=== PATIENT | female | born 1970 | race Caucasian/White ===

== ENCOUNTER 2018-01-30 11:01 | Emergency (ER) | payer MEDICAID ==
[2018-01-30 11:22] VITALS: BP 178/116
[2018-01-30] MEDS ORDERED: Magnesium Citrate Solution 296 ML Bottle PO ONE (11:48)
[2018-01-30] MEDS ORDERED: Bisacodyl 10 MG Supp RECTAL ONE (11:49)
--- NOTE | 2018-01-30 11:54 | EDM.PDOC ---
ED HPI GENERAL MEDICAL PROBLEM - General Chief Complaint: Abdominal Pain Stated Complaint: ABDOMEN PAIN Time Seen by Provider: 01/30/18 11:35 Source of Information: Reports: Patient, Old Records, RN History Limitations: Reports: No Limitations - History of Present Illness INITIAL COMMENTS - FREE TEXT/NARRATIVE: 47 yo female presents with LLQ abdominal pain that waxes and wanes. Last BM was hard. No vomiting. No abdominal distention or fever. No black or bloody stools. No dysuria. Is s/p KELTON with bilateral salpingo-oophorectomy. Onset: Gradual Onset Date: 01/29/18 Duration: Day(s):, Getting Worse, Waxing/Waning Location: Reports: Abdomen (LLQ) Quality: Reports: Sharp Severity: Moderate Improves with: Reports: None Worsens with: Reports: Other (? 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: Other (see below) (none) - Related Data Allergies Allergy/AdvReac Type Severity Reaction Status Date / Time No Known Allergies Allergy Verified 01/30/18 11:24 Home Meds: Home Meds Aspirin/Calcium Carbonate/Mag [Aspirin Buffered 325 mg Tab] 325 mg PO ASDIRECTED 12/09/15 [History] Losartan [Cozaar] 100 mg PO DAILY 12/09/15 [History] Pravastatin [Pravachol] 40 mg PO DAILY 12/09/15 [History] Spironolactone 25 mg PO DAILY 12/09/15 [History] sitaGLIPtin Phosphate [Januvia] 100 mg PO DAILY 12/09/15 [History] Insulin Glargine,Hum.Rec.Anlog [Basaglar Kwikpen U-100] 13 units SQ DAILY [History] Liraglutide [Victoza] 1 ml SQ ASDIRECTED 01/30/18 [History] Past Medical History Cardiovascular History: Reports: CAD, High Cholesterol, Hypertension, [place] [employer] History: Reports: Fibroids Endocrine/Metabolic History: Reports: Diabetes, Type II, IDDM Hematologic History: Reports: Bleeding Disorder - Past Surgical History GI Surgical History: Reports: Appendectomy Female Surgical History: Reports: Section, Hysterectomy, Salpingo- Oophorectomy, Tubal Ligation Social & Family History - Tobacco Use Smoking Status *Q: Current Every Day Smoker Years of Tobacco use: 20 Packs/Tins Daily: 0.5 - Caffeine Use Caffeine Use: Reports: Soda - Recreational Drug Use Recreational Drug Use: No ED ROS GENERAL - Review of Systems Review Of Systems: See Below Constitutional: Reports: No Symptoms HEENT: Reports: No Symptoms Respiratory: Reports: No Symptoms Cardiovascular: Reports: No Symptoms GI/Abdominal: Reports: Abdominal Pain, Constipation. Denies: Black Stool, Bloody Stool, Diarrhea, Decreased Appetite, Distension, Flatus, Hematemesis, Hematochezia, Melena, Nausea, Vomiting : Reports: No Symptoms Musculoskeletal: Reports: No Symptoms Skin: Reports: No Symptoms Neurological: Reports: No Symptoms ED EXAM, GI/ABD - Physical Exam Exam: See Below Exam Limited By: No Limitations General Appearance: Alert, WD/WN, No Apparent Distress Eyes: Bilateral: Normal Appearance Ears: Normal External Exam, Normal Canal, Hearing Grossly Normal Nose: Normal Inspection, Normal Mucosa Throat/Mouth: Normal Inspection, Normal Lips, Normal Oropharynx, Normal Voice, No Airway Compromise Head: Atraumatic, Normocephalic Neck: Normal Inspection, Supple, Non-Tender Respiratory/Chest: No Respiratory Distress, Lungs Clear, Normal Breath Sounds, No Accessory Muscle Use Cardiovascular: Regular Rate, Rhythm, No Edema GI/Abdominal Exam: Normal Bowel Sounds, Soft, Non-Tender, No Distention Back Exam: Normal Inspection. No: CVA Tenderness (R), CVA Tenderness (L) Extremities: Normal Inspection, Normal Range of Motion, Non-Tender, No Pedal Edema Neurological: Alert, Oriented, CN II-XII Intact, Normal Cognition, No Motor/ Sensory Deficits Psychiatric: Normal Affect, Normal Mood Skin Exam: Warm, Dry, Intact, Normal Color, No Rash Lymphatic: No Adenopathy Course - Vital Signs Last Recorded V/S: Last Vital Signs Temp 36.1 C 01/30/18 11:26 Pulse 83 01/30/18 11:26 Resp 15 01/30/18 11:26 BP 178/116 H 01/30/18 11:26 Pulse Ox 94 L 01/30/18 11:26 - Orders/Labs/Meds Labs: Laboratory Tests 01/30/18 Range/Units 11:41 Urine Color Yellow Urine Appearance Clear Urine pH 6.0 (4.5-8.0) Ur Specific [place] 1.010 (1.008-1.030) Urine Protein Negative (NEGATIVE) mg/dL Urine Glucose (UA) Normal (NEGATIVE) mg/dL Urine Ketones Negative (NEGATIVE) mg/dL Urine Occult Blood Negative (NEGATIVE) Urine Nitrite Negative (NEGATIVE) Urine Bilirubin Negative (NEGATIVE) Urine Urobilinogen Normal (NORMAL) mg/dL Ur Leukocyte Esterase Negative (NEGATIVE) Urine RBC Not seen (0-5) Urine WBC 0-5 (0-5) Ur Epithelial Cells Few Amorphous Sediment Not seen Urine Bacteria Not seen Urine Mucus Not seen Meds: Medications Discontinued Medications Generic Name Dose Route Start Last Admin Trade Name Freq PRN Reason Stop Dose Admin Bisacodyl 10 mg 01/30/18 11:49 01/30/18 12:04 Dulcolax RECTAL 01/30/18 11:50 10 mg ONETIME ONE Administration Magnesium Citrate 296 ml 01/30/18 11:48 01/30/18 12:04 Citrate Of Magnesia PO 01/30/18 11:49 296 ml ONETIME ONE Administration Departure - Departure Time of Disposition: 13:25 Disposition: Home, Self-Care 01 Condition: Good Clinical Impression: Constipation Qualifiers: Constipation type: slow transit constipation Qualified Code(s): K59.01 - Slow transit constipation - Discharge Information *PRESCRIPTION DRUG MONITORING PROGRAM REVIEWED*: Not Applicable *COPY OF PRESCRIPTION DRUG MONITORING REPORT IN PATIENT DHEERAJ: Not Applicable Instructions: High-Fiber Diet, Constipation, Adult Referrals: PCP,None [Primary Care Provider] - Forms: ED Department Discharge Additional Instructions: Drink more fluids and eat more fiber. Take Miralax one dose once or twice daily. Recheck in the clinic if your problem persists.
== END 2018-01-30 13:28 | disposition home or self-care (01) ==
LOC: JP.ED 11:01
DX: K59.01 Slow transit constipation (principal); I10 Essential (primary) hypertension; E78.00 Pure hypercholesterolemia, unspecified; E11.9 Type 2 diabetes mellitus without complications; F17.210 Nicotine dependence, cigarettes, uncomplicated; Z79.82 Long term (current) use of aspirin; Z79.4 Long term (current) use of insulin; Z79.899 Other long term (current) drug therapy
CPT/HCPCS: 81001; 99284; A9270

== ENCOUNTER 2018-07-01 13:07 | Emergency (ER) | payer MEDICAID ==
--- NOTE | 2018-07-01 13:24 | EDM.PDOC ---
<Nicci Pagan - Last Filed: 07/01/18 14:10> ED HPI GENERAL MEDICAL PROBLEM - General Chief Complaint: Respiratory Problem Stated Complaint: PAIN IN RIBS/SOB Time Seen by Provider: 07/01/18 13:37 - History of Present Illness INITIAL COMMENTS - FREE TEXT/NARRATIVE: Meagan Yang is a 48 year old female who presents to the E.D. with concerns of right sided back pain. She indicates a trauma event in which she slipped on the ice and landed on her back 1 week ago. She notes hitting her head and feeling nauseous a couple days after the event, but did not lose consciousness. Since the event her back has been sore but last evening the pain increased in severity. She notes the pain to be sharp, stabbing and a 9/10 on the pain scale. The pain is located around lower ribs with radiation of pain to the RUQ and RLQ of the abdomen. She denies radiation of pain to her shoulders. She denies chest pain but states she feels short of breath. She notes the pain increases in severity when she performs inspiration. She has not ate since last evening. Further associated symptoms are denied at this time. Onset: Sudden (Last evening) Onset Date: 06/30/18 Location: Reports: Other (Right sided flank pain with radiation of RUQ and RLQ) Quality: Reports: Sharp, Stabbing Severity: Severe Worsens with: Reports: Breathing Associated Symptoms: Reports: Shortness of Breath, Other (Nausea post fall) - Related Data Allergies Allergy/AdvReac Type Severity Reaction Status Date / Time No Known Allergies Allergy Verified 07/01/18 13:45 Home Meds: Home Meds Losartan [Cozaar] 100 mg PO DAILY 12/09/15 [History] Pravastatin [Pravachol] 40 mg PO BEDTIME 12/09/15 [History] Spironolactone 25 mg PO DAILY 12/09/15 [History] sitaGLIPtin Phosphate [Januvia] 100 mg PO DAILY 12/09/15 [History] Insulin Glargine,Hum.Rec.Anlog [Basaglar Kwikpen U-100] 13 units SQ DAILY [History] Liraglutide [Victoza] 1 ml SQ ASDIRECTED 01/30/18 [History] Aspirin [Children's Aspirin] 1 tab PO DAILY 07/01/18 [History] Past Medical History Cardiovascular History: Reports: CAD, High Cholesterol, Hypertension, [place] [employer] C[employer]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 History: Reports: Fibroids Endocrine/Metabolic History: Reports: Diabetes, Type II, IDDM Hematologic History: Reports: Bleeding Disorder - Past Surgical History GI Surgical History: Reports: Appendectomy Female Surgical History: Reports: Section, Hysterectomy, Salpingo- Oophorectomy, Tubal Ligation Social & Family History - Caffeine Use Caffeine Use: Reports: Soda ED EXAM, GENERAL - Physical Exam Exam Limited By: Other (Pain) General Appearance: Anxious, Severe Distress Head: Atraumatic, Normocephalic Respiratory/Chest: No Accessory Muscle Use, Other (No kimberly abnormalities noted ; Positive for shallow respirations, decreased breath sounds ascultated on right lower lung field) GI/Abdominal: Other (Tenderness upon palpation of RUQ and RLQ with guarding) Back Exam: Normal Inspection, Muscle Spasm, Other (Severe tenderness upon palpation of lower right ribs) Extremities: No Pedal Edema Neurological: Alert, Oriented Skin Exam: Warm, Dry. No: Erythema, Rash Course - Vital Signs Last Recorded V/S: Last Vital Signs Temp 98.0 F 07/01/18 13:45 Pulse 80 07/01/18 16:30 Resp 40 H 07/01/18 13:45 BP 140/92 H 07/01/18 16:30 Pulse Ox 93 L 07/01/18 13:45 - Orders/Labs/Meds Orders: Active Orders 24 hr Category Date Time Status Saline Lock Insert [OM.PC] Routine Oth 07/01/18 13:38 Ordered Labs: Laboratory Tests 07/01/18 07/01/18 Range/Units 13:40 13:40 WBC 11.7 H (4.5-11.0) K/uL RBC 5.53 H (3.30-5.50) M/uL Hgb 16.1 H (12.0-15.0) g/dL Hct 47.1 (36.0-48.0) % MCV 85 (80-98) fL MCH 29 (27-31) pg MCHC 34 (32-36) % Plt Count 366 (150-400) K/uL Neut % (Auto) 68 H (36-66) % Lymph % (Auto) 23 L (24-44) % [place] % (Auto) 7 H (2-6) % Eos % (Auto) 2 (2-4) % Baso % (Auto) 1 (0-1) % Sodium 139 L (140-148) mmol/L Potassium 3.9 (3.6-5.2) mmol/L Chloride 101 (100-108) mmol/L Carbon Dioxide 26 (21-32) mmol/L Anion Gap 15.9 H (5.0-14.0) mmol/L BUN 9 (7-18) mg/dL Creatinine 0.6 (0.6-1.0) mg/dL Est Cr Clr Drug Dosing 85.59 mL/min Estimated GFR (MDRD) > 60 (>60) Glucose 131 H (74-106) mg/dL Calcium 9.7 (8.5-10.1) mg/dL Total Bilirubin 0.4 D (0.2-1.0) mg/dL AST 19 (15-37) U/L ALT 34 (12-78) U/L Alkaline Phosphatase 101 (46-116) U/L Total Protein 8.0 (6.4-8.2) g/dL Albumin 3.5 (3.4-5.0) g/dL Globulin 4.5 H (2.3-3.5) g/dL Albumin/Globulin Ratio 0.8 L (1.2-2.2) Meds: Medications Discontinued Medications Generic Name Dose Route Start Last Admin Trade Name Freq PRN Reason Stop Dose Admin Hydromorphone HCl 1 mg 07/01/18 13:35 07/01/18 13:40 Dilaudid IM 07/01/18 13:36 1 mg ONETIME ONE Administration Sodium Chloride 75 mls @ 3 mls/sec 07/01/18 14:45 07/01/18 15:03 Normal Saline IV 07/01/18 15:00 3 mls/sec ASDIRECTED TIANA Administration Iopamidol 100 ml 07/01/18 14:41 07/01/18 15:01 Isovue-300 (61%) IV 07/02/18 14:42 100 ml . DIRECTED PRN Administration RADIOLOGY EXAM Ketorolac Tromethamine 30 mg 07/01/18 16:20 07/01/18 16:28 Toradol IVPUSH 07/01/18 16:21 30 mg ONETIME ONE Administration Lorazepam 0.5 mg 07/01/18 13:39 07/01/18 14:08 Ativan IVPUSH 07/01/18 13:40 0.5 mg ONETIME ONE Administration Sodium Chloride 10 ml 07/01/18 13:38 07/01/18 14:11 Saline Flush FLUSH 10 ml ASDIRECTED PRN Administration Keep Vein Open Departure - Departure Disposition: Home, Self-Care 01 Clinical Impression: Spasm of back muscles - Discharge Information Instructions: Muscle Cramps and Spasms, [id number] Referrals: Romel Guido MD [Primary Care Provider] - Forms: ED Department Discharge Care Plan Goals: Continue with a regular dose of ibuprofen or naproxen for the next several days , and add muscle relaxers as needed. Increase activity as tolerated, and recheck in 3-4 days if not improving satisfactorily. - My Orders Last 24 Hours: My Active Orders 07/01/18 13:38 Saline Lock Insert [OM.PC] Routine - Assessment/Plan Last 24 Hours: My Active Orders 07/01/18 13:38 Saline Lock Insert [OM.PC] Routine <Jin Brown - Last Filed: 07/01/18 17:10> ED HPI GENERAL MEDICAL PROBLEM - General Source of Information: Reports: Patient Right Back Pain Score (Numeric/FACES): 4 ED ROS GENERAL - Review of Systems Review Of Systems: See Below Constitutional: Denies: Fever, Chills Respiratory: Reports: Pleuritic Chest Pain GI/Abdominal: Reports: Abdominal Pain : Reports: No Symptoms Musculoskeletal: Reports: Back Pain Skin: Denies: Bruising, Rash Neurological: Denies: Paresthesia Psychiatric: Reports: Anxiety ED EXAM, GENERAL - Physical Exam Exam: See Below Course - Vital Signs Last Recorded V/S: Last Vital Signs Temp 98.0 F 07/01/18 13:45 Pulse 80 07/01/18 16:30 Resp 40 H 07/01/18 13:45 BP 140/92 H 07/01/18 16:30 Pulse Ox 93 L 07/01/18 13:45 - Orders/Labs/Meds Orders: Active Orders 24 hr Category Date Time Status Saline Lock Insert [OM.PC] Routine Oth 07/01/18 13:38 Ordered Labs: Laboratory Tests 07/01/18 07/01/18 Range/Units 13:40 13:40 WBC 11.7 H (4.5-11.0) K/uL RBC 5.53 H (3.30-5.50) M/uL Hgb 16.1 H (12.0-15.0) g/dL Hct 47.1 (36.0-48.0) % MCV 85 (80-98) fL MCH 29 (27-31) pg MCHC 34 (32-36) % Plt Count 366 (150-400) K/uL Neut % (Auto) 68 H (36-66) % Lymph % (Auto) 23 L (24-44) % [place] % (Auto) 7 H (2-6) % Eos % (Auto) 2 (2-4) % Baso % (Auto) 1 (0-1) % Sodium 139 L (140-148) mmol/L Potassium 3.9 (3.6-5.2) mmol/L Chloride 101 (100-108) mmol/L Carbon Dioxide 26 (21-32) mmol/L Anion Gap 15.9 H (5.0-14.0) mmol/L BUN 9 (7-18) mg/dL Creatinine 0.6 (0.6-1.0) mg/dL Est Cr Clr Drug Dosing 85.59 mL/min Estimated GFR (MDRD) > 60 (>60) Glucose 131 H (74-106) mg/dL Calcium 9.7 (8.5-10.1) mg/dL Total Bilirubin 0.4 D (0.2-1.0) mg/dL AST 19 (15-37) U/L ALT 34 (12-78) U/L Alkaline Phosphatase 101 (46-116) U/L Total Protein 8.0 (6.4-8.2) g/dL Albumin 3.5 (3.4-5.0) g/dL Globulin 4.5 H (2.3-3.5) g/dL Albumin/Globulin Ratio 0.8 L (1.2-2.2) - Re-Assessments/Exams Free Text/Narrative Re-Assessment/Exam: 07/01/18 16:15 Initial history and evaluation was taken with the nurse practitioner student, initial recordings were done by Nicci and I concur with her history and findings. The patient was so uncomfortable when she first arrived that an IV was started after giving her 1 mg of IM Dilaudid. This was followed by 0.5 mg of IV Ativan. This markedly improved her spasm and pain. CMP and CBC were obtained, and when those returned reassuring a CT scan of the chest abdomen and pelvis were done with IV contrast under the trauma protocol. This also returned normal. Patient will be treated with muscle relaxers and pain control, she was given 30 mg of IV Toradol prior to discharge. Departure - Departure Time of Disposition: 16:44 Condition: Good - My Orders Last 24 Hours: My Active Orders 07/01/18 13:38 Saline Lock Insert [OM.PC] Routine - Assessment/Plan Last 24 Hours: My Active Orders 07/01/18 13:38 Saline Lock Insert [OM.PC] Routine
[2018-07-01] MEDS ORDERED: HYDROmorphone 1 MG/ML Syringe IM ONE (13:35)
[2018-07-01] MEDS ORDERED: Sodium Chloride 0.9% 10 ML Syringe FLUSH PRN (13:38)
[2018-07-01] MEDS ORDERED: LORazepam 2 MG/ML SDV IVPUSH ONE (13:39)
[2018-07-01] MEDS ORDERED: Iopamidol 612 MG/ML 100 ML Bottle IV PRN (14:41)
[2018-07-01] MEDS ORDERED: Sodium Chloride 0.9% 75 ML IV SCH (14:45)
--- NOTE | 2018-07-01 16:05 | CRLCT ---
INDICATION: TRAUMA, RIGHT BACK AND ABDOMINAL PAIN HISTORY: Trauma. COMPARISON: None. TECHNIQUE: CT of the chest, abdomen, and pelvis. 100 cc of Isovue-300 IV. Coronal/sagittal reconstruction images. FINDINGS: Chest: The inferior thyroid gland is symmetric. There is no intramural or mediastinal hematoma. Calcifications are present about the mitral valve anulus. Normal caliber thoracic aorta. Normal caliber main pulmonary artery. The lung windows demonstrate no endobronchial mass. No bronchiectasis. No architectural distortion. There is no suspicious pulmonary nodule. There is no acute airspace disease. Atelectasis is present at the left lung base and inferior segment of the lingula. No evidence of a pulmonary laceration. Abdomen/pelvis: There is an enhancing lesion present at the junction of segments 5 and 8, which is likely a flash filling hemangioma. This measures 13 mm in dimension. There is an additional, 7 mm lesion in segment 6 on image 113, series 2, which is technically indeterminate. 7 mm lesion in segment 2, image 72, series 2. No perihepatic ascites. No inflammatory changes at the gallbladder. No portal vein thrombosis. The splenic vein and SMV are patent. Spleen size is normal. There is no pancreatic mass or pancreatic duct dilation. No glandular atrophy. No adrenal mass. There are symmetric nephrograms. There is no solid renal mass. No perinephric inflammatory changes. No hemoperitoneum. No adnexal mass. Uterus appears surgically absent. No evidence of a small bowel or colonic obstruction. No abdominal aortic aneurysm. The visceral artery branches are patent. Mild degenerative atherosclerotic plaque is present. No abdominal or pelvic lymphadenopathy is seen by size criteria. There is a probable benign bone island in the anterior column of the left acetabulum measuring 6 mm, image 178. There are no suspicious bone lesions identified. There is no displaced rib fracture or chest wall hematoma. The manubrium and body of the sternum are intact. Vertebral body heights and alignment are maintained. IMPRESSION: 1. No intramural or mediastinal hematoma. 2. No pulmonary laceration or pneumothorax. 3. No hemoperitoneum or evidence on CT for a visceral organ injury. 4. Benign, flash filling hepatic cavernous hemangioma at the junction of segments 5 and 8. Additional low-dense liver lesions are incidental, and too small to further characterize. These can be further evaluated on a nonemergent basis with multiphasic MRI. 5. Report called to Dr. Brown, emergency department, 07/01/2018, 1603 hours. Dictated by Dominik Cedeno MD @ 07/01/2018 4:04:19 PM Please note that all CT scans at this facility use dose modulation, iterative reconstruction, and/or weight-based dosing when appropriate to reduce radiation dose to as low as reasonably achievable. Dictated by: Dominik Cedeno MD @ 07/01/2018 16:04:29 (Electronically Signed)
[2018-07-01] MEDS ORDERED: Ketorolac 30 MG/ML SDV IVPUSH ONE (16:20)
[2018-07-01 16:31] VITALS: BP 140/92
== END 2018-07-01 16:44 | disposition home or self-care (01) ==
LOC: JP.ED 13:07
DX: M62.830 Muscle spasm of back (principal); I10 Essential (primary) hypertension; E78.00 Pure hypercholesterolemia, unspecified; E11.9 Type 2 diabetes mellitus without complications; I25.2 Old myocardial infarction; Z79.4 Long term (current) use of insulin; Z79.899 Other long term (current) drug therapy
CPT/HCPCS: 36415; 71260; 74177; 80053; 85025; 96372; 96374; 96375; 99284; J1170; J1885; J2060; J7030; Q9967

== ENCOUNTER 2019-10-05 06:16 | Day surgery (SDC) | payer MEDICAID ==
[2019-10-05] MEDS ORDERED: Sodium Chloride 0.9% 1,000 ML IV SCH (07:00)
[2019-10-05] MEDS ORDERED: fentaNYL 100 MCG/2 ML SDV ONE (07:08)
[2019-10-05] MEDS ORDERED: Propofol 200 MG/20 ML SDV ONE (07:08)
[2019-10-05] MEDS ORDERED: Midazolam 1 MG/ML 2 ML SDV ONE (07:09)
[2019-10-05 09:00] VITALS: BP 158/96; PULSE 80
--- NOTE | 2019-10-05 10:38 | OR ---
DATE OF PROCEDURE: 10/05/2019 SURGEON: Dominik Wolff MD PROCEDURE: Colonoscopy. FINDINGS: Normal colonoscopy. COMPLICATIONS: None. [employer] F[employer] MANAGER: None. ANESTHESIA: MAC. PREOPERATIVE DIAGNOSIS: Change in bowel caliber. POSTOPERATIVE DIAGNOSIS: Change in bowel caliber. RISKS: Risks, benefits, alternatives, and limitations including, but not limited to infection, bleeding, and perforation were explained to the patient, who wished to proceed. PROCEDURE IN DETAIL: The patient was placed in left lateral decubitus position. Digital rectal exam was performed which showed mild external hemorrhoids. Scope was introduced and advanced atraumatically to the ileocecal valve. A photo was taken of this. Scope was brought back through the ascending, transverse, descending colon, and retroflexed. No old or new blood. No masses. No polyps. No etiology for caliber change. No abnormalities on retroflexion. The patient tolerated the procedure well. Dominik Wolff MD /[id number]
== END 2019-10-05 09:14 | disposition home or self-care (01) ==
LOC: JP.SDS 06:16
PROVIDERS: ATTEND Surgery
DX: R19.4 Change in bowel habit (principal); I10 Essential (primary) hypertension; F17.200 Nicotine dependence, unspecified, uncomplicated; E11.9 Type 2 diabetes mellitus without complications
CPT/HCPCS: 45378; J2250; J2704; J3010; J7030

== ENCOUNTER 2019-10-20 15:51 | Emergency (ER) | payer MEDICAID ==
[2019-10-20 16:17] VITALS: BP 145/92; PULSE 91
--- NOTE | 2019-10-20 17:08 | EDM.PDOC ---
ED HPI GENERAL MEDICAL PROBLEM - General Chief Complaint: Lower Extremity Injury/Pain Stated Complaint: RT CALF PAIN Time Seen by Provider: 10/20/19 17:07 Source of Information: Reports: Patient History Limitations: Reports: No Limitations - History of Present Illness INITIAL COMMENTS - FREE TEXT/NARRATIVE: pt arrived with a tight feeling in her rt leg. She believes she got the joint and muscle pain from using a statin. She has been off of the statin for 2 weeks and the left leg got alot better but the rt still has the tightness. Onset: Gradual Duration: Hour(s): Location: Reports: Lower Extremity, Right Associated Symptoms: Reports: No Other Symptoms Right Lower Leg Pain Score (Numeric/FACES): 7 - Related Data Allergies Allergy/AdvReac Type Severity Reaction Status Date / Time hydrochlorothiazide Allergy Nausea and Verified 08/05/19 13:37 Vomiting lisinopril Allergy Nausea and Verified 08/05/19 13:37 Vomiting metformin Allergy Diarrhea Verified 08/05/19 13:37 nicotine Allergy Rash Verified 08/05/19 13:37 pioglitazone Allergy Rash Verified 08/05/19 13:37 Home Meds: Home Meds Losartan [Cozaar] 100 mg PO DAILY 12/09/15 [History] Spironolactone 25 mg PO DAILY 12/09/15 [History] sitaGLIPtin Phosphate [Januvia] 100 mg PO DAILY 12/09/15 [History] Aspirin [Children's Aspirin] 1 tab PO DAILY 07/01/18 [History] Cyclobenzaprine [Flexeril] 10 mg PO TID PRN 08/05/19 [History] Naproxen [Naprosyn] 500 mg PO BID PRN 08/05/19 [History] Triamcinolone Acetonide [Kenalog 0.1% Crm] 1 applic TOP TID 08/05/19 [History] metFORMIN [Glucophage XR] 500 mg PO QID 08/05/19 [History] Past Medical History HEENT History: Reports: None Cardiovascular History: Reports: CAD, High Cholesterol, Hypertension, [place] Respiratory History: Reports: Asthma Gastrointestinal History: Reports: Chronic Diarrhea Genitourinary History: Reports: Pyelonephritis, UTI, Recurrent [employer] History: Reports: Fibroids Neurological History: Reports: Vertigo Psychiatric History: Reports: Depression Endocrine/Metabolic History: Reports: Diabetes, Type II, IDDM Hematologic History: Reports: Blood Transfusion(s) Dermatologic History: Reports: None - Infectious Disease History Infectious Disease History: Reports: Chicken Pox - Past Surgical History HEENT Surgical History: Reports: Oral Surgery Cardiovascular Surgical History: Reports: None Respiratory Surgical History: Reports: None GI Surgical History: Reports: Appendectomy, Colonoscopy Female Surgical History: Reports: Section, Hysterectomy, Salpingo- Oophorectomy, Tubal Ligation Neurological Surgical History: Reports: None Dermatological Surgical History: Reports: Skin Biopsy Social & Family History - Family History Family Medical History: Noncontributory - Tobacco Use Smoking Status *Q: Current Every Day Smoker Years of Tobacco use: 30 Packs/Tins Daily: 0.5 - Caffeine Use Caffeine Use: Reports: Soda - Recreational Drug Use Recreational Drug Use: No Review of Systems - Review of Systems Review Of Systems: See Below Constitutional: Reports: No Symptoms Eyes: Reports: No Symptoms Ears: Reports: No Symptoms Nose: Reports: No Symptoms Mouth/Throat: Reports: No Symptoms Respiratory: Reports: No Symptoms Cardiovascular: Reports: No Symptoms Musculoskeletal: Reports: Other ( tightness and pain in the rt calf area. ) ED EXAM, GENERAL - Physical Exam Exam: See Below Free Text/Narrative:: pt arrived with tightness and pain in the rt calf. She has not been able to get her leg to relax. She has a concern that she could have a clot. Exam Limited By: No Limitations General Appearance: Alert, Anxious, Mild Distress Extremities: Other (pt does not have any leg redness or sig swelling she has normal filling. ) Neurological: Alert, Oriented, Normal Cognition Course - Vital Signs Last Recorded V/S: Last Vital Signs Temp 37.1 C 10/20/19 16:23 Pulse 91 10/20/19 16:23 Resp 16 10/20/19 16:23 BP 145/92 H 10/20/19 16:23 Pulse Ox 95 10/20/19 16:23 - Orders/Labs/Meds Orders: Active Orders 24 hr Category Date Time Status VL Duplex Lwr Ext Veins Ltd Rt [US] Stat Exams 10/20/19 17:06 Taken Labs: Laboratory Tests 10/20/19 10/20/19 Range/Units 17:18 17:18 WBC 9.7 (4.5-11.0) K/uL RBC 5.29 (3.30-5.50) M/uL Hgb 14.8 (12.0-15.0) g/dL Hct 45.3 (36.0-48.0) % MCV 86 (80-98) fL MCH 28 (27-31) pg MCHC 33 (32-36) % Plt Count 346 (150-400) K/uL Neut % (Auto) 55 (36-66) % Lymph % (Auto) 32 (24-44) % [place] % (Auto) 7 H (2-6) % Eos % (Auto) 4 (2-4) % Baso % (Auto) 1 (0-1) % Sodium 138 L (140-148) mmol/L Potassium 4.7 (3.6-5.2) mmol/L Chloride 103 (100-108) mmol/L Carbon Dioxide 30 (21-32) mmol/L Anion Gap 9.7 (5.0-14.0) mmol/L BUN 10 (7-18) mg/dL Creatinine 0.6 (0.6-1.0) mg/dL Est Cr Clr Drug Dosing 84.65 mL/min Estimated GFR (MDRD) > 60 (>60) Glucose 221 H (74-106) mg/dL Calcium 9.0 (8.5-10.1) mg/dL Total Bilirubin 0.3 (0.2-1.0) mg/dL AST 13 L (15-37) U/L ALT 33 (12-78) U/L Alkaline Phosphatase 101 (46-116) U/L Total Protein 7.1 (6.4-8.2) g/dL Albumin 3.6 (3.4-5.0) g/dL Globulin 3.5 (2.3-3.5) g/dL Albumin/Globulin Ratio 1.0 L (1.2-2.2) - Re-Assessments/Exams Free Text/Narrative Re-Assessment/Exam: 10/20/19 18:17 US was obtained on the rt leg which was normal. She has normal lab work. I feel this is like a muscle spasm, She does have a hypersensitity on the front of the leg. Departure - Departure Time of Disposition: 18:09 Disposition: Home, Self-Care 01 Condition: Fair Clinical Impression: Muscle pain - Discharge Information Referrals: Romel Guido MD [Primary Care Provider] - Forms: ED Department Discharge Care Plan Goals: soak in whirl pool, cont to use the local applications--oil and daja [place], try following with ice packs, follow up with Shaunna taylor Sepsis Event Note (ED) - Evaluation Sepsis Screening Result: No Definite Risk - Focused Exam Vital Signs: Vital Signs Temp Pulse Resp BP Pulse Ox 10/20/19 16:23 37.1 C 91 16 145/92 H 95 10/20/19 16:16 37.1 C 91 16 145/92 H 95 - My Orders Last 24 Hours: My Active Orders 10/20/19 17:06 VL Duplex Lwr Ext Veins Ltd Rt [US] Stat - Assessment/Plan Last 24 Hours: My Active Orders 10/20/19 17:06 VL Duplex Lwr Ext Veins Ltd Rt [US] Stat
--- NOTE | 2019-10-20 18:20 | CRLUS ---
INDICATION: right leg pain TECHNIQUE: Ultrasound venous duplex right lower extremity. COMPARISON: None. FINDINGS: The right common femoral, superficial femoral, deep femoral, popliteal, posterior tibial, and greater saphenous veins are fully compressible with normal waveforms. The contralateral left common femoral artery is fully compressible with normal waveform. No masses evident. IMPRESSION: Normal ultrasound of the right lower extremity veins. Dictated by: Johan Carrillo MD @ 10/20/2019 18:18:20 (Electronically Signed)
== END 2019-10-20 18:19 | disposition home or self-care (01) ==
LOC: JP.ED 15:51
DX: M79.18 Myalgia, other site (principal); I25.10 Atherosclerotic heart disease of native coronary artery without angina pectoris; I10 Essential (primary) hypertension; I25.2 Old myocardial infarction; J45.909 Unspecified asthma, uncomplicated; E11.9 Type 2 diabetes mellitus without complications; F17.210 Nicotine dependence, cigarettes, uncomplicated; Z88.8 Allergy status to other drugs, medicaments and biological substances; Z91.09 Other allergy status, other than to drugs and biological substances; Z79.82 Long term (current) use of aspirin; Z79.84 Long term (current) use of oral hypoglycemic drugs; Z79.899 Other long term (current) drug therapy
CPT/HCPCS: 36415; 80053; 85025; 93971-RT; 99284-25

== ENCOUNTER 2021-09-22 06:39 | Day surgery (SDC) | payer MEDICAID ==
[2021-09-22] MEDS ORDERED: Propofol 200 MG/20 ML SDV ONE (07:05)
[2021-09-22] MEDS ORDERED: Midazolam 1 MG/ML 2 ML SDV ONE (07:05)
[2021-09-22] MEDS ORDERED: fentaNYL 100 MCG/2 ML SDV ONE (07:05)
[2021-09-22] MEDS ORDERED: Dextrose 5%-Lactated Ringers 1,000 ML IV SCH (07:15)
[2021-09-22] MEDS ORDERED: Pantoprazole 40 MG Vial IVPUSH ONE (09:04)
[2021-09-22 09:48] VITALS: BP 122/76; PULSE 74
== END 2021-09-22 10:09 | disposition home or self-care (01) ==
LOC: JP.SDS 06:39
PROVIDERS: ATTEND Surgery
DX: K21.00 Gastro-esophageal reflux disease with esophagitis, without bleeding (principal); K29.60 Other gastritis without bleeding; K44.9 Diaphragmatic hernia without obstruction or gangrene; K29.80 Duodenitis without bleeding; K25.9 Gastric ulcer, unspecified as acute or chronic, without hemorrhage or perforation; I10 Essential (primary) hypertension; E11.9 Type 2 diabetes mellitus without complications; F17.200 Nicotine dependence, unspecified, uncomplicated; E66.9 Obesity, unspecified; Z68.29 Body mass index [BMI] 29.0-29.9, adult
CPT/HCPCS: 87081; 88305; C9113; J2250; J2704; J3010; J7121